=== PATIENT | female | born 1955 | race Caucasian/White ===

== ENCOUNTER → 2017-05-22 | Outpatient (CLI) | payer SELFPAY ==
--- NOTE | 2017-05-26 13:36 | MG ---
Examination: Bilateral screening mammogram. Clinical history: Routine screening. Technique: Digital CC and MLO views of both breasts were obtained. Computer aided detection analysis was performed and used during the interpretation. Comparison: 06/23/2012. Findings: The breasts are composed of scattered fibroglandular densities. Benign-appearing calcifications are n oted in the breasts bilaterally. A small intramammary lymph node is present in the superior portion o f the left breast. No suspicious mass, area of architectural distortion or suspicious cluster of microcalcifications is noted. Impression: 1. No mammographic evidence of malignancy. BI-RADS category 2-benign findings. Recommend routine annual screening mammogram. Diagnostic CAD was utilized and reviewed. * 0 (ZERO) - ASSESSMENT INCOMPLETE; ADDITIONAL IMAGING IS NEEDED. * 0C - ASSESSMENT INCOMPLETE, NEEDS ADDITIONAL IMAGING EVALUATION AND/OR PRIOR MAMMOGRAMS FOR COMPARI SON. * 1/1 (ONE) - NEGATIVE. * 2/II (TWO) - BENIGN FINDINGS. * 3/III (THREE) - PROBABLY BENIGN FINDING; SHORT INTERVAL FOLLOW-UP SUGGESTED. * 4/IV (FOUR) - SUSPICIOUS ABNORMALITY; BIOPSY SHOULD BE CONSIDERED. * 5/V - HIGHLY SUSPICIOUS OF MALIGNANCY; BIOPSY SHOULD BE PERFORMED. * 6/IV - KNOWN BIOPSY PROVEN MALIGNANCY-APPROPRIATE ACTION SHOULD BE TAKEN. A NEGATIVE X-RAY REPORT SHOULD NOT DELAY BIOPSY IF A DOMINANT OR CLINICALLY SUSPICIOUS MASS IS PRESENT; 4 TO 8 PERCENT OF CANCERS ARE NOT IDENTIFIED BY X-RAY. A NEGATIVE REPORT MAY REINFORCE THE CLINICAL IMPRESSION. ADENOSIS AND DENSE BREASTS MAY OBSCURE AN UNDERLYING NEOPLASM. Reported By:
== END ==
LOC: RAD 09:26
PROVIDERS: ATTEND Specialist
DX: Z12.31 Encounter for screening mammogram for malignant neoplasm of breast (principal)
CPT/HCPCS: 77067

== ENCOUNTER 2021-12-07 09:48 | Observation (INO) ==
[2021-12-07] MEDS ORDERED: TUSSIONEX PENNKINETIC SUSP PO PRN (10:01)
[2021-12-07 12:55] LABS: BASOPHILS % (AUTO) 0.4 % (0.2-1.0); EOSINOPHILS % (AUTO) 0.5 % (0.9-2.9); HEMATOCRIT 28.5 % (36.0-47.0); HEMOGLOBIN 9.4 g/dL (12.0-16.0); LYMPHOCYTES # (AUTO) 1.8 X10^3/uL (1.3-2.9); MEAN CORPUSCULAR VOLUME 78.9 fL (80.0-100.0); MEAN PLATELET VOLUME 7.2 fL (7.4-11.0); MONOCYTES # (AUTO) 0.8 x10^3/uL (0.3-0.8); MONOCYTES % (AUTO) 12.2 % (0.0-13.0); NEUTROPHILS % (AUTO) 59.9 % (42.0-75.0); RED BLOOD COUNT 3.62 X10^6/uL (3.5-5.4); RED CELL DISTRIBUTION WIDTH 14.6 % (11.6-16.5); WHITE BLOOD COUNT 6.7 X10^3/uL (3.6-10.0)
--- NOTE | 2021-12-07 13:01 | RAD ---
CHEST, PA/LAT ADULTHISTORY: PNEUMONIAStudy: PA and lateral views of the chest.Comparison:NoneFindings:The cardiomediastinal silhouette is normal.No focal consolidations, pleural effusions or pneumothorax. Osseous structures demonstrate no acute abnormality.IMPRESSION:1. No acute cardiopulmonary process.Electronically signed by: RONAK DOUGLASS (December 07, 2021 12:59:50)
[2021-12-07] MEDS ORDERED: DUONEB 0.5 MG/3 MG (3 mL) NEB ONE (13:05)
[2021-12-07 13:09] LABS: ALANINE AMINOTRANSFERASE 23 Units/L (12-78); ALBUMIN 3.1 g/dL (3.4-5.0); ALKALINE PHOSPHATASE 74 Units/L (46-116); ASPARTATE AMINO TRANSFERASE 23 Units/L (15-37); BLOOD UREA NITROGEN 12 mg/dL (7-18); CALCIUM 8.4 mg/dL (8.5-10.1); CARBON DIOXIDE 28.3 mmol/L (21-32); CHLORIDE 102 mmol/L (98-107); COR CA(FOR HYPOALB) 9.1 mg/dL (8.5-10.1); COR NA(FOR HYPERGLY) 140 mmol/L (136-145); CREATININE 0.73 mg/dL (0.55-1.02); SODIUM 138 mmol/L (136-145); eGFR NON BLACK RACES > 60 (>60)
[2021-12-07] MEDS: DUONEB 0.5 MG/3 MG (3 mL) NEB SCH ×2 (13:20→16:05)
[2021-12-07] MEDS: ZOSYN VIAL 3.375 GRAMS 3.375 G in NS 100 ML IV 100 ML IV SCH ×3 (13:51→21:10)
[2021-12-07] MEDS ORDERED: NS 1/2 1,000 ML IV 1,000 ML IV ONE ×2 (13:53→19:38)
[2021-12-07] MEDS: NS 1/2 1,000 ML IV 1,000 ML IV SCH (14:12)
[2021-12-07] MEDS: VSL#3 PO SCH (14:12)
[2021-12-07] MEDS: LEVAQUIN PREMIX IV 750 MG 750 MG/150 ML BAG IV SCH (14:12)
[2021-12-07] MEDS: SOLU-Medrol 40 MG VIAL IVP SCH ×3 (14:13→21:10)
[2021-12-07] MEDS: ROBITUSSIN DM PO SCH ×4 (14:13→21:10)
[2021-12-07] MEDS ORDERED: K-DUR TAB 20 MEQ PO PRN (14:15)
[2021-12-07] MEDS ORDERED: POTASSIUM CHL 40 MEQ/NS 0.45% 500 ML IV PRN (14:15)
[2021-12-07] MEDS ORDERED: POTASSIUM CHL 60 MEQ/NS 0.45% 500 ML IV PRN (14:15)
[2021-12-07] MEDS ORDERED: KLOR-CON PO PRN (14:15)
[2021-12-07] MEDS ORDERED: K-RIDER 10 MEQ/NS 100 ML 10 MEQ/100 ML BAG IV PRN (14:15)
[2021-12-07] MEDS ORDERED: MICRO K EXTEN CAP 10 MEQ PO PRN (14:15)
[2021-12-07] MEDS ORDERED: POTASSIUM CHLORIDE LIQ 20 MEQ UDC PO PRN (14:15)
[2021-12-07] MEDS ORDERED: SALINE 3% 15 ML NEB TX NEB ONE (16:00)
[2021-12-07] MEDS: MAGNESIUM SULFATE 1 GRAM/100 mL PREMIX 1 G/100 ML BAG IV PRN ×2 (17:27→20:30)
[2021-12-07] MEDS: AMBIEN PO PRN (22:49)
[2021-12-08] MEDS: XOPENEX 1.25 MG/3 ML NEBULE NEB SCH ×4 (00:04→17:00)
[2021-12-08 04:49] LABS: BASOPHILS % (AUTO) 0.4 % (0.2-1.0); HEMATOCRIT 25.6 % (36.0-47.0); HEMOGLOBIN 8.4 g/dL (12.0-16.0); LYMPHOCYTES # (AUTO) 0.7 X10^3/uL (1.3-2.9); LYMPHOCYTES % (AUTO) 13.7 % (21.0-51.0); MEAN CORPUSCULAR HGB CONC 32.8 g/dL (33.0-35.0); MEAN CORPUSCULAR VOLUME 79.3 fL (80.0-100.0); MEAN PLATELET VOLUME 7.4 fL (7.4-11.0); MONOCYTES # (AUTO) 0.2 x10^3/uL (0.3-0.8); MONOCYTES % (AUTO) 3.5 % (0.0-13.0); NEUTROPHILS # (AUTO) 4.5 x10^3/uL (2.2-4.8); NEUTROPHILS % (AUTO) 82.4 % (42.0-75.0); RED BLOOD COUNT 3.23 X10^6/uL (3.5-5.4); RED CELL DISTRIBUTION WIDTH 14.5 % (11.6-16.5); WHITE BLOOD COUNT 5.4 X10^3/uL (3.6-10.0)
[2021-12-08 04:51] LABS: ALANINE AMINOTRANSFERASE 17 Units/L (12-78); ALBUMIN 2.8 g/dL (3.4-5.0); ALKALINE PHOSPHATASE 64 Units/L (46-116); ASPARTATE AMINO TRANSFERASE 19 Units/L (15-37); BLOOD UREA NITROGEN 9 mg/dL (7-18); CARBON DIOXIDE 23.7 mmol/L (21-32); CHLORIDE 106 mmol/L (98-107); COR NA(FOR HYPERGLY) 142 mmol/L (136-145); CREATININE 0.69 mg/dL (0.55-1.02); SODIUM 139 mmol/L (136-145); TOTAL PROTEIN 6.2 g/dL (6.4-8.2); eGFR NON BLACK RACES > 60 (>60)
[2021-12-08] MEDS: NS 1/2 1,000 ML IV 1,000 ML IV SCH ×3 (05:54→16:33)
[2021-12-08] MEDS: SOLU-Medrol 40 MG VIAL IVP SCH ×3 (05:54→21:12)
[2021-12-08] MEDS: ZOSYN VIAL 3.375 GRAMS 3.375 G in NS 100 ML IV 100 ML IV SCH ×3 (05:54→21:12)
--- NOTE | 2021-12-08 07:45 | RAD ---
CHEST, 1 VIEWHISTORY: SOBStudy: Single view of the chest.Comparison:December 07, 2021Findings:The cardiomediastinal silhouette is normal.No focal consolidations, pleural effusions or pneumothorax. Osseous structures demonstrate no acute abnormality.IMPRESSION:1. No acute cardiopulmonary process.Electronically signed by: RONAK DOUGLASS (December 08, 2021 07:43:10)
[2021-12-08] MEDS: ROBITUSSIN DM PO SCH ×4 (08:35→21:12)
[2021-12-08] MEDS: VSL#3 PO SCH (08:35)
[2021-12-08] MEDS: LEVAQUIN PREMIX IV 750 MG 750 MG/150 ML BAG IV SCH (10:03)
--- NOTE | 2021-12-08 10:57 | DR.H&P ---
H&P - History & Physical for Day of: H&P Date: 12/07/21 - Chief Complaint Chief Complaint: CCC - History of Present Illness History of Present Illness: PT IS 65F DIRECT ADMIT PER DR CHAN FOR CO CCC, FAILED OUTPT BRONCHITIS. PT HAS PMH OF HTN, OA, HYPOTHYROID. PT ADMITTED FOR TREATMENT OF ACUTE ILLNESS. - Past Medical History Past Medical History: Anxiety, Arthritis, Hypertension, Hypothyroidism - Past Surgical History Surgical History: Hysterectomy - Social History Does patient currently use any type of tobacco product: No Have you used tobacco products in the last 12 months: No Type of Tobacco Use: None Does any household member use tobacco: No Alcohol Use: None Drug Use: None - Medications Home Medications: No Known Drug Allergies Allergy (Verified 12/07/21 13:28) CONTINUE taking the following medications cyanocobalamin (vitamin B-12) 1,000 mcg IM WEEKLY 12/07/21 [History] estradiol 2 mg PO DAILY 12/07/21 [History] furosemide [Lasix] 20 mg PO DAILY 12/07/21 [History] gemfibrozil 600 mg PO BID 12/07/21 [History] hydrocodone-acetaminophen 1 tab PO BID PRN 12/07/21 [History] levofloxacin 500 mg PO DAILY 12/07/21 [History] levothyroxine 25 mcg PO DAILY 12/07/21 [History] lisinopril-hydrochlorothiazide 1 tab PO DAILY 12/07/21 [History] meloxicam 15 mg PO DAILY 12/07/21 [History] metoprolol succinate 25 mg PO DAILY 12/07/21 [History] sertraline 100 mg PO DAILY 12/07/21 [History] simvastatin 40 mg PO HS 12/07/21 [History] trazodone 50 mg PO DAILY 12/07/21 [History] zolpidem 10 mg PO HS PRN 12/07/21 [History] - Review of Systems Constitutional: Weakness, Malaise Eyes: No Symptoms Reported ENT: No Symptoms Reported Respiratory: Cough, Shortness of Breath, SOB with Excertion, Sputum, Wheezing Cardiovascular: No Symptoms Reported Gastrointestinal: Nausea Genitourinary: No Symptoms Reported Musculoskeletal: Back Pain Skin: No Symptoms Reported Neurological: No Symptoms Reported - Physical Exam Vital Signs: Temperature 97.9 F Pulse Rate [Right Brachial] 90 Pulse Rate [Left Brachial] 85 Pulse Rate 86 Respiratory Rate 18 Blood Pressure [Right Arm] 146/71 Blood Pressure [Left Arm] 134/66 O2 Sat by Pulse Oximetry 98 Oriented: Normal Eyes: Normal Ear: Normal Nose: Normal Throat: Normal Respiratory: Rhonchi Throughout ([facility] [place]), RLL Diminished, LLL Diminished, RLL Absent : Normal Auscultation: Bowel Sounds: Normal Palpation: Normal Tenderness: Normal Skin: Normal Musculoskeletal: Back:Lumbar Psychiatric: Anxiety Affect: Anxious Speech Pattern: Clear - Assessment/Plan (1) Bronchitis Status: Acute Plan: ADMIT, SPUTUM CULTURE ON ADMISSION. IV ATBX, IV HYDRATION. RESP THERAPY, PRN SUPPLEMENTAL O2. VERIFY AND RESUME HOME MEDICATION. CXR ON ADMISSION (2) Hypertension Status: Acute (3) Hypothyroid Status: Acute (4) Osteoarthritis Status: Acute - Allergies Allergies/Adverse Reactions: Allergies Allergy/AdvReac Type Severity Reaction Status Date / Time No Known Drug Allergies Allergy Verified 12/07/21 13:28
[2021-12-08] MEDS: SYNTHROID 25 mcg TAB PO SCH (11:49)
[2021-12-08] MEDS: MOBIC TAB 15 MG PO SCH (11:49)
[2021-12-08] MEDS: TOPROL XL PO SCH (11:49)
[2021-12-08] MEDS: ZESTORETIC 20/25 MG PO SCH (11:49)
[2021-12-08] MEDS: ESTRACE PO SCH (11:49)
[2021-12-08] MEDS ORDERED: NS 1/2 1,000 ML IV 1,000 ML IV ONE (16:32)
[2021-12-08] MEDS ORDERED: ZOLOFT ONE (20:14)
[2021-12-08] MEDS: ZOLOFT PO SCH (21:12)
[2021-12-08] MEDS: DESYREL PO SCH (21:12)
[2021-12-08] MEDS: AMBIEN PO PRN (21:13)
[2021-12-09] MEDS: XOPENEX 1.25 MG/3 ML NEBULE NEB SCH ×4 (01:01→17:52)
[2021-12-09 05:03] LABS: BASOPHILS % (AUTO) 0.2 % (0.2-1.0); HEMATOCRIT 24.8 % (36.0-47.0); HEMOGLOBIN 8.3 g/dL (12.0-16.0); LYMPHOCYTES # (AUTO) 0.9 X10^3/uL (1.3-2.9); LYMPHOCYTES % (AUTO) 9.3 % (21.0-51.0); MEAN CORPUSCULAR HEMOGLOBIN 26.3 pg (27.0-34.0); MEAN CORPUSCULAR HGB CONC 33.3 g/dL (33.0-35.0); MEAN CORPUSCULAR VOLUME 78.8 fL (80.0-100.0); MEAN PLATELET VOLUME 7.5 fL (7.4-11.0); MONOCYTES # (AUTO) 0.4 x10^3/uL (0.3-0.8); MONOCYTES % (AUTO) 4.4 % (0.0-13.0); NEUTROPHILS % (AUTO) 86.1 % (42.0-75.0); RED BLOOD COUNT 3.15 X10^6/uL (3.5-5.4); RED CELL DISTRIBUTION WIDTH 14.7 % (11.6-16.5); WHITE BLOOD COUNT 9.3 X10^3/uL (3.6-10.0)
[2021-12-09 05:13] LABS: ALANINE AMINOTRANSFERASE 17 Units/L (12-78); ALBUMIN 2.7 g/dL (3.4-5.0); ALKALINE PHOSPHATASE 60 Units/L (46-116); ASPARTATE AMINO TRANSFERASE 14 Units/L (15-37); BLOOD UREA NITROGEN 12 mg/dL (7-18); CARBON DIOXIDE 24.9 mmol/L (21-32); CHLORIDE 103 mmol/L (98-107); COR NA(FOR HYPERGLY) 140 mmol/L (136-145); CREATININE 0.78 mg/dL (0.55-1.02); SODIUM 137 mmol/L (136-145); TOTAL PROTEIN 6.1 g/dL (6.4-8.2); eGFR NON BLACK RACES > 60 (>60)
[2021-12-09] MEDS: SOLU-Medrol 40 MG VIAL IVP SCH ×3 (05:29→21:02)
[2021-12-09] MEDS: ZOSYN VIAL 3.375 GRAMS 3.375 G in NS 100 ML IV 100 ML IV SCH ×3 (05:30→21:02)
[2021-12-09] MEDS: NS 1/2 1,000 ML IV 1,000 ML IV SCH ×2 (05:30→20:00)
[2021-12-09] MEDS ORDERED: ZOLOFT ONE (07:05)
--- NOTE | 2021-12-09 07:16 | RAD ---
Chest AP portableIndication: Dyspnea.Comparison December 08, 2021FINDINGSThere is no pneumothorax, effusion or dense consolidation. Heart size is normalIMPRESSIONNo acute chest process.Electronically signed by: ILDA PORTILLO (December 09, 2021 07:15:09)
[2021-12-09] MEDS: ESTRACE PO SCH (08:53)
[2021-12-09] MEDS: TOPROL XL PO SCH (08:54)
[2021-12-09] MEDS: VSL#3 PO SCH (08:55)
[2021-12-09] MEDS: MOBIC TAB 15 MG PO SCH (08:55)
[2021-12-09] MEDS: DESYREL PO SCH (08:56)
[2021-12-09] MEDS: ZESTORETIC 20/25 MG PO SCH (08:56)
[2021-12-09] MEDS: ROBITUSSIN DM PO SCH ×4 (08:57→20:54)
[2021-12-09] MEDS: LEVAQUIN PREMIX IV 750 MG 750 MG/150 ML BAG IV SCH (08:57)
[2021-12-09] MEDS: SYNTHROID 25 mcg TAB PO SCH (08:58)
[2021-12-09] MEDS: ZOLOFT PO SCH (08:59)
[2021-12-09] MEDS: NORCO 7.5/325 MG TAB PO PRN (09:07)
[2021-12-09] MEDS: PROTONIX INJ 40 MG VIAL IVP SCH ×2 (11:57→20:55)
[2021-12-09] MEDS ORDERED: NS 1/2 1,000 ML IV 1,000 ML IV ONE (20:38)
[2021-12-09] MEDS: COLACE CAP 100 MG PO SCH (20:54)
[2021-12-09] MEDS: AMBIEN PO PRN (20:55)
[2021-12-10] MEDS: XOPENEX 1.25 MG/3 ML NEBULE NEB SCH ×4 (00:19→17:00)
[2021-12-10 04:16] LABS: BASOPHILS % (AUTO) 0.1 % (0.2-1.0); HEMATOCRIT 26.8 % (36.0-47.0); HEMOGLOBIN 8.8 g/dL (12.0-16.0); LYMPHOCYTES # (AUTO) 0.8 X10^3/uL (1.3-2.9); MEAN CORPUSCULAR HEMOGLOBIN 26.1 pg (27.0-34.0); MEAN CORPUSCULAR VOLUME 79.1 fL (80.0-100.0); MEAN PLATELET VOLUME 7.5 fL (7.4-11.0); MONOCYTES # (AUTO) 0.4 x10^3/uL (0.3-0.8); NEUTROPHILS % (AUTO) 86.9 % (42.0-75.0); RED BLOOD COUNT 3.39 X10^6/uL (3.5-5.4); RED CELL DISTRIBUTION WIDTH 14.9 % (11.6-16.5); WHITE BLOOD COUNT 9.2 X10^3/uL (3.6-10.0)
[2021-12-10 04:31] LABS: ALANINE AMINOTRANSFERASE 15 Units/L (12-78); ALBUMIN 2.8 g/dL (3.4-5.0); ALKALINE PHOSPHATASE 61 Units/L (46-116); ASPARTATE AMINO TRANSFERASE 14 Units/L (15-37); BLOOD UREA NITROGEN 14 mg/dL (7-18); CALCIUM 8.3 mg/dL (8.5-10.1); CARBON DIOXIDE 22.9 mmol/L (21-32); CHLORIDE 102 mmol/L (98-107); COR CA(FOR HYPOALB) 9.3 mg/dL (8.5-10.1); COR NA(FOR HYPERGLY) 138 mmol/L (136-145); CREATININE 0.83 mg/dL (0.55-1.02); SODIUM 135 mmol/L (136-145); TOTAL PROTEIN 6.3 g/dL (6.4-8.2); eGFR NON BLACK RACES > 60 (>60)
[2021-12-10] MEDS: SOLU-Medrol 40 MG VIAL IVP SCH ×3 (05:15→21:03)
[2021-12-10] MEDS: ZOSYN VIAL 3.375 GRAMS 3.375 G in NS 100 ML IV 100 ML IV SCH ×3 (05:15→21:03)
--- NOTE | 2021-12-10 06:16 | RAD ---
HISTORYShortness of breath, pneumoniaSTUDYChest AP [id number]/15/2022FINDINGSHear t size is normal. Fabiana are normal. Lung joshi are clear. No pleural effusions are identified. Bony thorax is unremarkable.IMPRESSIONNo significant abnormality identifiedElectronically signed by: LANETTE SAINI (December 10, 2021 06:15:16)
[2021-12-10] MEDS ORDERED: ZOLOFT ONE (08:08)
[2021-12-10] MEDS: PROTONIX INJ 40 MG VIAL IVP SCH ×2 (09:12→20:45)
[2021-12-10] MEDS: ESTRACE PO SCH (09:12)
[2021-12-10] MEDS: MOBIC TAB 15 MG PO SCH (09:12)
[2021-12-10] MEDS: ROBITUSSIN DM PO SCH ×4 (09:12→20:45)
[2021-12-10] MEDS: DESYREL PO SCH (09:12)
[2021-12-10] MEDS: SYNTHROID 25 mcg TAB PO SCH (09:12)
[2021-12-10] MEDS: ZESTORETIC 20/25 MG PO SCH (09:12)
[2021-12-10] MEDS: MILK OF MAGNESIA PO SCH (09:12)
[2021-12-10] MEDS: TOPROL XL PO SCH (09:12)
[2021-12-10] MEDS: ZOLOFT PO SCH (09:13)
[2021-12-10] MEDS: VSL#3 PO SCH (09:14)
[2021-12-10] MEDS: LEVAQUIN PREMIX IV 750 MG 750 MG/150 ML BAG IV SCH (09:14)
[2021-12-10] MEDS ORDERED: LOVENOX INJ 40 MG SYR SC SCH (10:00)
[2021-12-10] MEDS: NORCO 7.5/325 MG TAB PO PRN (14:57)
[2021-12-10] MEDS: COLACE CAP 100 MG PO SCH (20:45)
[2021-12-10] MEDS: AMBIEN PO PRN (21:04)
[2021-12-10] MEDS: NS 1/2 1,000 ML IV 1,000 ML IV SCH (22:04)
[2021-12-11] MEDS: XOPENEX 1.25 MG/3 ML NEBULE NEB SCH ×3 (00:10→05:02)
[2021-12-11] MEDS ORDERED: NS 1/2 1,000 ML IV 1,000 ML IV ONE (04:07)
[2021-12-11] MEDS: ZOSYN VIAL 3.375 GRAMS 3.375 G in NS 100 ML IV 100 ML IV SCH (05:00)
[2021-12-11] MEDS: SOLU-Medrol 40 MG VIAL IVP SCH (05:00)
[2021-12-11 05:25] LABS: BASOPHILS % (AUTO) 0 % (0.2-1.0); HEMOGLOBIN 8.7 g/dL (12.0-16.0); LYMPHOCYTES # (AUTO) 0.8 X10^3/uL (1.3-2.9); LYMPHOCYTES % (AUTO) 8.7 % (21.0-51.0); MEAN CORPUSCULAR HEMOGLOBIN 26.2 pg (27.0-34.0); MEAN CORPUSCULAR HGB CONC 33.3 g/dL (33.0-35.0); MEAN CORPUSCULAR VOLUME 78.8 fL (80.0-100.0); MEAN PLATELET VOLUME 7.6 fL (7.4-11.0); MONOCYTES # (AUTO) 0.5 x10^3/uL (0.3-0.8); MONOCYTES % (AUTO) 5.3 % (0.0-13.0); NEUTROPHILS # (AUTO) 7.8 x10^3/uL (2.2-4.8); WHITE BLOOD COUNT 9.1 X10^3/uL (3.6-10.0)
[2021-12-11 05:50] LABS: ALANINE AMINOTRANSFERASE 17 Units/L (12-78); ALBUMIN 2.6 g/dL (3.4-5.0); ALKALINE PHOSPHATASE 56 Units/L (46-116); ASPARTATE AMINO TRANSFERASE 15 Units/L (15-37); BLOOD UREA NITROGEN 20 mg/dL (7-18); CALCIUM 8.2 mg/dL (8.5-10.1); CHLORIDE 99 mmol/L (98-107); COR CA(FOR HYPOALB) 9.3 mg/dL (8.5-10.1); COR NA(FOR HYPERGLY) 139 mmol/L (136-145); CREATININE 0.93 mg/dL (0.55-1.02); SODIUM 135 mmol/L (136-145); eGFR NON BLACK RACES > 60 (>60)
--- NOTE | 2021-12-11 06:07 | RAD ---
HISTORYShortness of breathSTUDYChest AP [id number]/16/2022FINDINGSHear t size is normal. Fabiana are normal. Lung joshi remain clear. No pleural effusions are identified. Bony thorax is unremarkable.IMPRESSIONNo significant abnormality identifiedElectronically signed by: LANETTE SAINI (December 11, 2021 06:06:06)
[2021-12-11] MEDS ORDERED: ZOLOFT ONE (08:39)
[2021-12-11] MEDS: ESTRACE PO SCH (08:47)
[2021-12-11] MEDS: MILK OF MAGNESIA PO SCH (08:47)
[2021-12-11] MEDS: SYNTHROID 25 mcg TAB PO SCH (08:48)
[2021-12-11] MEDS: DESYREL PO SCH (08:48)
[2021-12-11] MEDS: TOPROL XL PO SCH (08:48)
[2021-12-11] MEDS: LEVAQUIN PREMIX IV 750 MG 750 MG/150 ML BAG IV SCH (08:48)
[2021-12-11] MEDS: MOBIC TAB 15 MG PO SCH (08:48)
[2021-12-11] MEDS: PROTONIX INJ 40 MG VIAL IVP SCH (08:49)
[2021-12-11] MEDS: ZOLOFT PO SCH (08:49)
[2021-12-11] MEDS: ZESTORETIC 20/25 MG PO SCH (08:49)
[2021-12-11] MEDS: ROBITUSSIN DM PO SCH (08:49)
[2021-12-11] MEDS: VSL#3 PO SCH (08:49)
--- NOTE | 2021-12-11 11:18 | PCM.PROG ---
Progress Note - Progress Note for Day of Date of Exam: 12/10/21 - Subjective Subjective: IS CURRENTLY OBSERVATION STATUS FOR TREATMENT OF BRONCHOPNEUMONIA, FAILED OUTPATIENT TREATMENT. PMH OF HTN, GERD, OSTEOARTHRITIS TO MULTIPLE JOINTS. TODAY, SHE IS ALERT AND ORIENTED, LYING IN BED ON MORNING ROUNDS. SHE HAS CONTINUED COMPLAINTS OF NON-PRODUCTIVE COUGH AND SHORTNESS OF BREATH. SHE ADMITS TO SLIGHT IMPROVEMENT IN SYMPTOMS SINCE ADMISSION. ON EXAMINATION, HEART IS REGULAR IN RATE AND RHYTHM. BILATERAL LUNGS NOTED WITH EXPIRATORY WHEEZING, DIMINISHED. ABDOMEN IS OBESE, SOFT, AND NON-TENDER WITH NORMAL BOWEL SOUNDS NOTED IN ALL QUADRANTS. HER VITALS THIS MORNING ARE: 97.8-95-18-97%-143/68. LABS WERE OBTAINED. ABNORMAL LAB VALUES INCLUDE THE FOLLOWING: RBC 3.39, HGB 8.8, HCT 26.8, PLT COUNT 451, SODIUM 135, GLUCOSE 226, CALCIUM 8.3, TOTAL BILI 0.10, AST 14, TOTAL PROTEIN 6.3, ALBUMIN 2.8. BLOOD CULTURES ARE PENDING. A CHEST XRAY WAS OBTAINED AND REVEALED: NO SIGNIFICANT ABNORMALITY IDENTIFIED. SHE IS CURRENTLY RECEIVING 1/2NS AT 75 ML/HR, LEVAQUIN 750MG IV DAILY, ZOSYN 3.375G IV TID, XOPENEX NEBS Q6H, TUSSIONEX 5ML PO Q12H PRN, ROBITUSSIN DM 10ML PO QID, SOLU-MEDROL 40MG IV Q8H, THE POTASSIUM AND MAGNESIUM PROTOCOLS, AND HIS HOME MEDICATIONS WERE RESUMED. WE WILL CONTINUE WITH CURRENT PLAN OF CARE TODAY. OTHERWISE, WE PLAN TO FOLLOW-UP WITH AM LABS AND CONTINUE TO MONITOR. TIME SPENT ON CLINICAL ASSESSMENT, REVIEWING LABS AND IMAGING, DECISION MAKING, AND DOCUMENTATION GREATER THAN 45 MINUTES. - Past Medical Family Social History Past Med/Fam/Surg Hx: No changes since H&P Allergies: Allergies No Known Drug Allergies Allergy (Verified 12/07/21 13:28) - Review of Systems ROS: No change since H&P - Vital Signs and I&O's Vital Signs: Temperature 98.6 F Pulse Rate [Right Brachial] 86 Pulse Rate [Left Brachial] 85 Pulse Rate 90 Respiratory Rate 18 Blood Pressure [Right Arm] 145/76 Blood Pressure [Left Arm] 134/66 O2 Sat by Pulse Oximetry 97 Intake and Output: Intake & Output 05/14/12/09/21 12/10/21 12/11/21 11:59 11:59 11:59 11:59 Intake Total 1879 3466 / 3466 2960 / 2960 2149 Balance 1879 3466 / 3466 2960 / 2960 2149 - Physical Exam Oriented: Normal Eyes: Normal Ear: Normal Nose: Normal Throat: Normal Respiratory: Diminished, Wheezes Cardiovascular: Normal : Normal Auscultation: Bowel Sounds: Normal Palpation: Normal Tenderness: Normal Skin: Normal Musculoskeletal: Back:Lumbar Psychiatric: Anxiety Affect: Anxious Speech Pattern: Clear, Appropriate - Laboratory and Diagnostics Result Diagrams: 12/11/21 04:05 12/11/21 04:05 Labs: 12/07/21 12:40 Blood Blood Culture - Preliminary 12/07/21 12:28 Blood Blood Culture - Preliminary Laboratory WBC 9.1 X10^3/uL (3.6-10.0) 12/11/21 04:05 RBC 3.30 X10^6/uL (3.5-5.4) L 12/11/21 04:05 Hgb 8.7 g/dL (12.0-16.0) L 12/11/21 04:05 Hct 26.0 % (36.0-47.0) L 12/11/21 04:05 MCV 78.8 fL (80.0-100.0) L 12/11/21 04:05 MCH 26.2 pg (27.0-34.0) L 12/11/21 04:05 MCHC 33.3 g/dL (33.0-35.0) 12/11/21 04:05 RDW 15.0 % (11.6-16.5) 12/11/21 04:05 Plt Count 466 X10^3/uL (150.0-450.0) H 12/11/21 04:05 MPV 7.6 fL (7.4-11.0) 12/11/21 04:05 Neut % (Auto) 86.0 % (42.0-75.0) H 12/11/21 04:05 Lymph % (Auto) 8.7 % (21.0-51.0) L 12/11/21 04:05 [place] % (Auto) 5.3 % (0.0-13.0) 12/11/21 04:05 Eos % (Auto) 0.0 % (0.9-2.9) L 12/11/21 04:05 Baso % (Auto) 0 % (0.2-1.0) L 12/11/21 04:05 Neut # (Auto) 7.8 x10^3/uL (2.2-4.8) H 12/11/21 04:05 Lymph # (Auto) 0.8 X10^3/uL (1.3-2.9) L 12/11/21 04:05 [place] # (Auto) 0.5 x10^3/uL (0.3-0.8) 12/11/21 04:05 Eos # (Auto) 0.0 x10^3/uL (0.0-0.2) 12/11/21 04:05 Baso # (Auto) 0.0 X10^3/uL (0.0-0.1) 12/11/21 04:05 Absolute Nucleated RBC 0.2 /100WBC 12/11/21 04:05 Sodium 135 mmol/L (136-145) L 12/11/21 04:05 Corrected Sodium 139 mmol/L (136-145) 12/11/21 04:05 Potassium 4.0 mmol/L (3.5-5.1) 12/11/21 04:05 Chloride 99 mmol/L (98-107) 12/11/21 04:05 Carbon Dioxide 24.0 mmol/L (21-32) 12/11/21 04:05 BUN 20 mg/dL (7-18) H 12/11/21 04:05 Creatinine 0.93 mg/dL (0.55-1.02) 12/11/21 04:05 Est GFR (MDRD) Af Amer > 60 (>60) 12/11/21 04:05 Est GFR (MDRD) Non-Af > 60 (>60) 12/11/21 04:05 Glucose 251 mg/dL (65-99) H 12/11/21 04:05 Calcium 8.2 mg/dL (8.5-10.1) L 12/11/21 04:05 Corrected Calcium 9.3 mg/dL (8.5-10.1) 12/11/21 04:05 Magnesium 1.8 mg/dL (1.7-2.9) 12/07/21 12:28 Total Bilirubin 0.10 mg/dL (0.2-1.0) L 12/11/21 04:05 AST 15 Units/L (15-37) 12/11/21 04:05 ALT 17 Units/L (12-78) 12/11/21 04:05 Alkaline Phosphatase 56 Units/L (46-116) 12/11/21 04:05 Total Protein 6.0 g/dL (6.4-8.2) L 12/11/21 04:05 Albumin 2.6 g/dL (3.4-5.0) L 12/11/21 04:05 Globulin 3.4 g/dL (2.5-4.5) 12/11/21 04:05 Albumin/Globulin Ratio 0.8 Ratio (1.1-2.1) L 12/11/21 04:05 SARS-CoV-2 (PCR) Negative (NEGATIVE) 12/07/21 12:27 Influenza Type A (PCR) Negative (NEGATIVE) 12/07/21 12:27 Influenza Type B (PCR) Negative (NEGATIVE) 12/07/21 12:27 RSV (PCR) Negative (NEGATIVE) 12/07/21 12:27 - Plan (1) Bronchopneumonia Status: Acute Plan: 1/2NS AT 75 ML/HR, LEVAQUIN 750MG IV DAILY, ZOSYN 3.375G IV TID, XOPENEX NEBS Q6H, TUSSIONEX 5ML PO Q12H PRN, ROBITUSSIN DM 10ML PO QID, SOLU-MEDROL 40MG IV Q8H, THE POTASSIUM AND MAGNESIUM PROTOCOLS, AND HIS HOME MEDICATIONS WERE RESUMED (2) GERD (gastroesophageal reflux disease) Status: Chronic Qualifiers: Esophagitis presence: esophagitis presence not specified Qualified Code(s): K21.9 - Gastro-esophageal reflux disease without esophagitis (3) Hypertension Status: Chronic Qualifiers: Hypertension type: primary hypertension Qualified Code(s): I10 - Essential (primary) hypertension (4) Osteoarthritis Status: Chronic Qualifiers: Osteoarthritis location: unspecified site Osteoarthritis type: unspecified Qualified Code(s): M19.90 - Unspecified osteoarthritis, unspecified site
[2021-12-11 14:45] VITALS: BP 144/67
== END 2021-12-11 11:40 | disposition home or self-care (01) ==
LOC: MED/SURG
PROVIDERS: ADMIT Internal Medicine; ATTEND Internal Medicine
DX: J18.0 Bronchopneumonia, unspecified organism; R06.02 Shortness of breath; I10 Essential (primary) hypertension; K21.9 Gastro-esophageal reflux disease without esophagitis; M19.90 Unspecified osteoarthritis, unspecified site; Z20.822 Contact with and (suspected) exposure to COVID-19; E03.8 Other specified hypothyroidism